=== PATIENT | female | born 1980 | race Caucasian/White ===

== ENCOUNTER 2016-11-10 02:57 | Emergency (ER) | payer BC, OTHER ==
[~2016-11-10] VITALS: Ht 167.6 cm; Wt 74.5 kg
[2016-11-10 03:01] VITALS: Ht 167.6 cm; Wt 74.5 kg
[2016-11-10] MEDS ORDERED: ONDANSETRON 4 MG INJ IV STA (03:25)
[2016-11-10] MEDS ORDERED: SOD CHLORIDE 0.9% 1,000 ML IV STA (03:25)
[2016-11-10] MEDS ORDERED: morphine 4 MG/ML VIAL IV STA (03:25)
[2016-11-10 04:24] LABS: ABNORMAL IP MESSAGE 1; BASOPHIL # 0.1 10^3/ul (0.0-0.1); BASOPHILS % 0.5 % (0.0-2.0); EOSINOPHILS # 0.1 10^3/ul (0.0-0.5); EOSINOPHILS % 0.8 % (0.0-7.0); HEMATOCRIT 37.2 % (37.0-47.0); HEMOGLOBIN 11.2 g/dl (12.0-16.0); LYMPHOCYTES # 2.2 10^3/ul (0.8-2.9); LYMPHOCYTES % 19.7 % (15.0-51.0); MEAN CORPUSCULAR HEMOGLOBIN 23.6 pg (29.0-33.0); MEAN CORPUSCULAR HGB CONC 30.1 g/dl (32.0-37.0); MEAN CORPUSCULAR VOLUME 78.3 fl (82.0-101.0); MEAN PLATELET VOLUME 10.2 fl (7.4-10.4); MONOCYTE # 0.7 10^3/ul (0.3-0.9); MONOCYTES % 6.6 % (0.0-11.0); NEUTROPHIL # 7.9 10^3/ul (1.6-7.5); NEUTROPHILS % 71.7 % (39.0-77.0); PLATELET COUNT 379 10^3/UL (140-415); RED BLOOD COUNT 4.75 10^6/ul (4.20-5.40); RED CELL DISTRIBUTION WIDTH 23.3 % (11.5-14.5)
[2016-11-10 04:33] LABS: ALBUMIN 4.8 g/dl (3.3-4.9); ALBUMIN/GLOBULIN RATIO 1.5; BILIRUBIN,INDIRECT 0.4 mg/dl (0-1.1); BILIRUBIN,TOTAL 0.4 mg/dl (0.2-1.3); CALCIUM 9.6 mg/dl (8.4-10.2); CREATININE 0.71 mg/dl (0.44-1.00); POTASSIUM 4.3 mmol/L (3.5-5.1)
[2016-11-10 04:34] LABS: POSITIVE DIFF @See below
--- NOTE | 2016-11-10 04:38 | RADRPT ---
PROCEDURE: CT Abdomen and pelvis without contrast. CLINICAL INDICATION: Abdominal pain. TECHNIQUE: CT scan of the abdomen and pelvis was performed on a multi-detector high-resolution CT scanner. Contiguous axial images were obtained from the lung bases to the ischial tuberosities wit hout intravenous contrast. Coronal and sagittal reformatted images were also obtained. Images were reviewed on the PACS workstation. One or more of the following dose reduction techniques were used: - Automated exposure control. - Adjustment of the mA and/or kV according to patient size. - Use of iterative reconstruction technique. Exam CTD/vol = 11.28 mGy. Total exam DLP = 680.10 mGy-cm. COMPARISON: None. FINDINGS: Evaluation of the lung bases demonstrates mild bibasilar atelectasis. Abdomen: The liver is normal in size. There is no focal mass or dilatation of the biliary tree. T he gallbladder is not distended. Multiple gallstones are identified. The spleen, pancreas and bila teral adrenal glands are within normal limits. Bilateral kidneys are normal in size with no contour deforming mass identified. There is no radiopaque renal or ureteral calculus identified. There is no hydronephrosis or hydroureter. There is no retroperitoneal adenopathy. The abdominal aorta is of normal caliber. There is no abnormal bowel wall thickening or distension. There is no bowel obstruction or free air . A normal appendix is identified. There is no diverticulosis or diverticulitis. There is no asci kelsi. Pelvis: The bladder is unremarkable. The uterus and adnexa are within normal limits. There is no significant pelvic adenopathy or free fluid. Evaluation of the osseous structures demonstrates no suspicious lytic or blastic lesion. IMPRESSION: Cholelithiasis. Mild bibasilar atelectasis. Otherwise no acute abnormality identified within the abdomen and pelvis. .Mata Vazquez MD, MD Date Time Electronically viewed and signed by .Mata Vazquez MD, MD on 11/10/2016 04:38 .T/
[2016-11-10 04:42] LABS: ADD UMIC NO; UR ASCORBIC ACID NEGATIVE (NEGATIVE); UR BACTERIA FEW /HPF (NONE SEEN); UR BILIRUBIN (Dip) NEGATIVE (NEGATIVE); UR BLOOD (Dip) NEGATIVE (NEGATIVE); UR CLARITY SLIGHTLY CLOUDY (CLEAR); UR COLOR STRAW (YELLOW); UR GLUCOSE (Dip) NEGATIVE (NEGATIVE); UR KETONES (Dip) NEGATIVE (NEGATIVE); UR LEUKOCYTE ESTERASE (Dip) NEGATIVE Leu/ul (NEGATIVE); UR NITRITE (Dip) NEGATIVE (NEGATIVE); UR RBC 0 /HPF (0-5); UR SPECIFIC GRAVITY (Dip) 1.008 (1.003-1.030); UR SQUAMOUS EPITHELIAL CELL FEW /HPF (FEW); UR TOTAL PROTEIN (Dip) NEGATIVE (NEGATIVE); UR UROBILINOGEN (Dip) NEGATIVE (NEGATIVE)
[2016-11-10] MEDS ORDERED: LIDOCAINE/MYLANTA 40 ML BTL PO ONE (05:00)
--- NOTE | 2016-11-10 05:06 | ERD ---
ER Documentation Chief Complaint Date/Time DATE: 11/10/16 TIME: 05:02 Chief Complaint LUQ pain x 1 day radiating to back. +n/v/d HPI This 36-year-old female presents for left upper quadrant epigastric abdominal pain for 1 day. She has had this problem on and off. She also has nausea vomiting and some diarrhea. She was recently prescribed an H. pylori antibiotic regimen. She has not had any abdominal surgery. Denies fevers and chills. Does get some weakness occasionally with the pain. ROS All systems reviewed and are negative except as per history of present illness. Medications Home Meds Active Scripts Ondansetron (Ondansetron Odt) 4 Mg Tab.rapdis, 4 MG PO Q6H Y for NAUSEA AND/OR VOMITING, #10 TAB Prov:RONEL LEONE DO 11/10/16 Acetaminophen* (Tylenol*) 500 Mg Tab, 500 MG PO Q6H Y for MILD PAIN LEVEL 1-3, # 10 TAB Prov:SULEMARONEL DO 11/10/16 Hydrocodone/Acetaminophen ([place] 5-325 Tablet) 1 Each Tablet, 1 EACH PO Q6 for SEVERE PAIN LEVEL 7-10, #20 TAB Prov:RONEL LEONE DO 11/10/16 Ranitidine Hcl* (Zantac*) 150 Mg Tablet, 150 MG PO BID, #60 TAB Prov:RONEL LEONE DO 11/10/16 Allergies Allergies: Coded Allergies: No Known Allergy (Unverified , 11/10/16) PMhx/Soc Anesthesia Reaction: No Hx Psychiatric Problems: No Hx Alcohol Use: No Hx Substance Use: No Hx Tobacco Use: No Smoking Status: Never smoker Physical Exam Vitals Vital Signs Date Time Temp Pulse Resp B/P Pulse Ox O2 Delivery O2 Flow Rate FiO2 11/10/16 03:53 45 16 112/74 98 Room Air 11/10/16 03:01 97.7 51 18 122/72 100 Physical Exam Const: [] Mild distress, appears uncomfortable Head: Atraumatic Eyes: Normal Conjunctiva ENT: Normal External Ears, Nose and Mouth. Neck: Full range of motion..~ No meningismus. Resp: Clear to auscultation bilaterally Cardio: Regular rate and rhythm, no murmurs Abd: Soft, mild left upper quadrant and epigastric tenderness without guarding rebound r, non distended. Normal bowel sounds Skin: No petechiae or rashes Ext: No cyanosis, or edema Neur: Awake and alert and oriented 3, no focal deficits Psych: Normal Mood and Affect Result Diagram: 11/10/16 0330 11/10/16 0330 Results 24 hrs Laboratory Tests Test 11/10/16 03:30 White Blood Count 11.010^3/ul Red Blood Count 4.7510^6/ul Hemoglobin 11.2g/dl Hematocrit 37.2% Mean Corpuscular Volume 78.3fl Mean Corpuscular Hemoglobin 23.6pg Mean Corpuscular Hemoglobin Concent 30.1g/dl Red Cell Distribution Width 23.3% Platelet Count 47655^3/UL Mean Platelet Volume 10.2fl Neutrophils % 71.7% Lymphocytes % 19.7% Monocytes % 6.6% Eosinophils % 0.8% Basophils % 0.5% Nucleated Red Blood Cells % 0.0/100WBC Neutrophils # 7.910^3/ul Lymphocytes # 2.210^3/ul Monocytes # 0.710^3/ul Eosinophils # 0.110^3/ul Basophils # 0.110^3/ul Nucleated Red Blood Cells # 0.010^3/ul Urine Color STRAW Urine Clarity SLIGHTLY CLOUDY Urine pH 6.0 Urine Specific [place] 1.008 Urine Ketones NEGATIVEmg/dL Urine Nitrite NEGATIVEmg/dL Urine Bilirubin NEGATIVEmg/dL Urine Urobilinogen NEGATIVEmg/dL Urine Leukocyte Esterase NEGATIVELeu/ul Urine Microscopic RBC 0/HPF Urine Microscopic WBC 0/HPF Urine Squamous Epithelial Cells FEW/HPF Urine Bacteria FEW/HPF Urine Hemoglobin NEGATIVEmg/dL Urine Glucose NEGATIVEmg/dL Urine Total Protein NEGATIVEmg/dl Sodium Level 144mmol/L Potassium Level 4.3mmol/L Chloride Level 104mmol/L Carbon Dioxide Level 25mmol/L Anion Gap 19 Blood Urea Nitrogen 10mg/dl Creatinine 0.71mg/dl Glucose Level 104mg/dl Calcium Level 9.6mg/dl Total Bilirubin 0.4mg/dl Direct Bilirubin 0.00mg/dl Indirect Bilirubin 0.4mg/dl Aspartate Amino Transf (AST/SGOT) 26IU/L Alanine Aminotransferase (ALT/SGPT) 24IU/L Alkaline Phosphatase 65IU/L Total Protein 8.0g/dl Albumin 4.8g/dl Globulin 3.20g/dl Albumin/Globulin Ratio 1.50 Lipase 48U/L Current Medications Medications (Trade) Dose Ordered Sig/Kaley Route PRN Reason Start Time Stop Time Status Last Admin Dose Admin Sodium Chloride (NS) 1,000 ml @ 1,000 mls/hr Q1H STAT IV 11/10/16 03:25 11/10/16 04:24 DC 11/10/16 03:44 Morphine Sulfate (morphine) 4 mg ONCE STAT IV 11/10/16 03:25 11/10/16 03:28 DC 11/10/16 03:45 Ondansetron HCl (Zofran Inj) 4 mg ONCE STAT IV 11/10/16 03:25 11/10/16 03:28 DC 11/10/16 03:44 Miscellaneous Medication (Gi Cocktail (2)) 40 ml ONCE ONCE PO 11/10/16 05:00 11/10/16 05:01 DC 11/10/16 05:15 Procedures/MDM Upper abdominal pain possibly secondary to combination of gastritis versus ulcer , gastroenteritis and biliary colic. Patient was given IV normal saline, morphine, Zofran. This resolved her nausea and helped with the pain. She was able to sleep comfortably. She still had some epigastric pain was given a GI cocktail which did greatly help with the pain. Mild elevated white blood cell count without signs of urinary tract infection or any other acute infection of the likely gastroenteritis. Discharging with Tylenol, [place], Zofran, Zantac.. Primary care follow-up in 2 3 days and return precautions. Discussed obtaining general surgery follow-up from her primary care doctor as well. CT abdomen pelvis interpretation: Multiple gallstones without gallbladder wall thickening or distention. No free air, no intestinal obstruction, no fractures Departure Diagnosis: Primary Impression: Acute abdominal pain Additional Impressions: Biliary colic Gastroenteritis Condition: Stable SULEMABRIGETTERONELJOSE DIAZ Nov 10, 2016 05:06
[2016-11-10] MEDS ORDERED: HYDR-906 PO (05:30)
[2016-11-10] MEDS ORDERED: ONDA4TAB14 PO (05:30)
[2016-11-10] MEDS ORDERED: RANI150T9 PO (05:30)
[2016-11-10] MEDS ORDERED: TYL500 PO (05:30)
[2016-11-10 05:43] VITALS: BP 105/75; PULSE 41; RESP 12
== END 2016-11-10 05:43 | disposition home or self-care (01) ==
LOC: E/R 02:57
DX: R10.32 Left lower quadrant pain (principal); K80.50 Calculus of bile duct without cholangitis or cholecystitis without obstruction; K52.9 Noninfective gastroenteritis and colitis, unspecified
CPT/HCPCS: 36415; 74176; 80053; 81001; 83690; 85025; 96374; 96375; 99285; J2270; J2405; J7030; 81003